=== PATIENT | female | born 1970 | race Caucasian/White ===

== ENCOUNTER 2017-02-18 11:01 | Day surgery (SDC) | payer BC ==
[~2017-02-18 11:01] MED LIST: ALPRAZolam 0.5 MG TAB PO ONE
--- NOTE | 2017-02-18 11:27 | US ---
ULTRASOUND GUIDED FNA THYROID BIOPSY: CLINICAL HISTORY: Reported history of outside right thyroid nodule FINDINGS: The procedure was explained to the patient. The risks, complications, benefits and alternatives were discussed and any questions were answered. Informed consent was obtained. Preliminary scanning was performed which demonstrated heterogeneous tissue with no distinct solid or cystic nodule. Therefore percutaneous biopsy could not be performed. IMPRESSION: 1. No distinct solid or cystic nodules seen for percutaneous biopsy..
== END 2017-02-18 11:30 | disposition home or self-care (01) ==
LOC: RADPROMAIN 11:01
PROVIDERS: ATTEND Family Medicine
DX: E04.1 Nontoxic single thyroid nodule (principal)
CPT/HCPCS: 76536

== ENCOUNTER → 2021-06-12 | Outpatient (CLI) | payer BC ==
--- NOTE | 2021-06-12 15:34 | CT ---
EXAMINATION TYPE: CT abdomen pelvis w con DATE OF EXAM: 06/12/2021 COMPARISON: None HISTORY: Unspecified intestinal obstruction CT DLP: 1275.9 mGycm Automated exposure control for dose reduction was used. TECHNIQUE: Helical acquisition of images from the lung bases through the pelvis have been completed. CONTRAST: Performed with Oral Contrast and with IV Contrast, patient injected with 100 mL of Isovue 300. FINDINGS: Minimal pericardial fluid is noted LUNG BASES: No significant abnormality is appreciated. AORTA: No significant abnormality is appreciated. LIVER/GB: Low dense focus associated with the left lobe liver measures 2.7 cm is likely represent cys t. Liver shows low attenuation possibly due to hepatic steatosis. Gallbladder is unremarkable. PANCREAS: No significant abnormality is seen. SPLEEN: No significant abnormality is seen. ADRENALS: No significant abnormality is seen. KIDNEYS: No significant abnormality is seen. REPRODUCTIVE ORGANS: No significant abnormality is seen BOWEL: No significant abnormality is seen. The appendix is unremarkable. Contrast has not coursed en tirely through the colon. Small umbilical hernia contains fat only. Postop changes are noted the evelin roesophageal junction. FREE AIR: No Free Air visible. ASCITES: None visible. PELVIC ADENOPATHY: None visualized. RETROPERITONEAL ADENOPATHY: No Retroperitoneal Adenopathy visible. URINARY BLADDER: No significant abnormality is seen. OSSEOUS STRUCTURES: Degenerative disc changes and facet arthropathy noted at the lumbosacral junctio n. IMPRESSION: CORRELATE FOR HEPATIC STEATOSIS, UMBILICAL HERNIA CONTAINS FAT.
== END | disposition home or self-care (01) ==
LOC: RADCTMAIN 11:44
PROVIDERS: ATTEND Family Medicine
DX: K76.0 Fatty (change of) liver, not elsewhere classified (principal); K42.9 Umbilical hernia without obstruction or gangrene
CPT/HCPCS: 74177; Q9967 ×2

== ENCOUNTER → 2023-04-01 | Outpatient (CLI) | payer BC ==
--- NOTE | 2023-04-01 15:42 | P.SLEEP ---
History of Present Illness H&P Date: 04/01/23 This is a 53-year-old female patient, who was referred to me for symptoms of chronic fatigue during the day and possibly an underlying poor sleep quality. The patient reports that she had issues with fatigue and lack of concentration for many years. This occurred at a younger age and the patient was treated with Concerta at a dose of 36 mg which improved her level of alertness and fatigue. Nevertheless, she continues to feel tired and getting a recent conversation with her primary care physician, it was decided to refer this patient to me to evaluate her sleep. Noted the patient has had some difficulties with sleep initiation and maintenance in the past and she has been maintained on trazodone at a dose of 100 mg 4 at least 12 years. She works at [employer]. She lives with her who also happens to work at [employer]. 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 She has to go to bed early and she is usually in bed at around 9:30 PM and she wakes up at around 4:30 AM in morning as the patient has to be at work early. She gets out of bed at 5 AM.. On weekends, she is able to sleep between 11 PM and 7:30 AM in the morning. On vacation days and whenever she is out with her friends, she feels better and she reports his sleep quality to be much improved. She denies having any snoring. Denies grinding of her teeth. Denies waking up choking or gasping for air. No restlessness and lower extremities. No substance abuse. No alcoholism. She drinks soda and she does not drink alcohol or coffee. She was obese and she has lost approximately 100 pounds while being on a medication -Ozempic and currently she is able to maintain a weight of 130 pounds. She is a nonsmoker. She does not fall asleep while driving her car or while at work. Her functional. Work is well preserved. Denies having any issues with anxiety or depression. No sleepwalking. No sleep talking. Coloma score is at 3. No cardiovascular disease. Review of Systems Constitutional: Reports fatigue, Reports weight loss Eyes: denies as per HPI, denies blurred vision, denies bulging eye, denies decreased vision, denies diplopia, denies discharge, denies dry eye, denies irritation, denies itching, denies pain, denies photophobia, denies loss of peripheral vision, denies loss of vision, denies tunnel vision/blind spots Ears: deny: decreased hearing, ear discharge, earache, tinnitus Ears, nose, mouth and throat: Reports as per HPI Breasts: absent: as per HPI, change in shape, gynecomastia, masses, nipple discharge, pain, skin changes, swelling Cardiovascular: Reports as per HPI Respiratory: Reports as per HPI Gastrointestinal: Reports as per HPI Genitourinary: Reports as per HPI Menstruation: Reports as per HPI Musculoskeletal: Reports as per HPI Musculoskeletal: absent: ankle pain, ankle stiffness, ankle swelling, as per HPI, elbow pain, elbow stiffness, elbow swelling, foot pain, foot stiffness, foot swelling, hand pain, hand stiffness, hand swelling, hip pain, hip stiffness, hip swelling, knee pain, knee stiffness, knee swelling, shoulder pain, shoulder stiffness, shoulder swelling, wrist pain, wrist stiffness, wrist swelling Integumentary: Reports as per HPI Neurological: Reports as per HPI Psychiatric: Reports as per HPI Endocrine: Reports fatigue Hematologic/Lymphatic: Reports as per HPI Allergic/Immunologic: Reports as per HPI Past Medical History Past Medical History: Thyroid Disorder Additional Past Medical History / Comment(s): Hashimotos, enlarged lymph node History of Any Multi-Drug Resistant Organisms: None Reported Past Surgical History: Section, Hernia Repair, Orthopedic Surgery Additional Past Surgical History / Comment(s): times 3, 3 hernia repairs, ORIF left wrist Past Anesthesia/Blood Transfusion Reactions: Postoperative Nausea & Vomiting (PONV) Past Psychological History: No Psychological Hx Reported Past Alcohol Use History: None Reported Past Drug Use History: None Reported - Past Family History Father Family Medical History: Myocardial Infarction ([place]) Medications and Allergies Home Medications and Allergies Comment(s): Concerta 36 mg 1 tablet a day in the morning, trazodone 100 mg at bedtime Home Medications Medication Instructions Recorded Confirmed Type traZODone HCL [Desyrel] 100 mg PO HS 08/10/15 11/14/17 History Allergies Allergy/AdvReac Type Severity Reaction Status Date / Time No Known Allergies Allergy Verified 11/18/17 08:06 Physical Exam BP is 117/78, pulse is 80, respirations 12 and the temperature is 97.9. Weight is 130, BMI is 25, Coloma score is at 3, pulse ox is 98% on room air oxygen The patient appeared well nourished and normally developed. Vital signs as documented. Head exam is unremarkable. No scleral icterus or corneal arcus noted. Neck is without jugular venous distension, thyromegaly, or carotid bruits. Carotid upstrokes are brisk bilaterally. Lungs are clear to auscultation and percussion. Cardiac exam reveals the PMI to be normally sized and situated. Rhythm is regular. First and second heart sounds normal. No murmurs, rubs or gallops. Abdominal exam reveals normal bowel sounds, no masses, no organomegaly and no aortic enlargement. Extremities are nonedematous and both femoral and pedal pulses are normal.Examination of the skin revealed no evidence of significant rashes, suspicious appearing nevi or other concerning lesions.Neurologically, the patient is awake and alert and the patient does not have any focal neurological deficit. Cranial nerves are essentially intact. Assessment and Plan Plan: Chronic fatigue and difficulties with attention and some degree of sleepiness. Coloma score is at 3 and the patient is admitted on Concerta 36 mg for many years. Underlying obstructive sleep apnea or any other sleep disorders felt to be less likely. She may have a component of stress/anxiety induced insomnia and the patient has been maintained on trazodone 100 mg at bedtime and she is able to generate a good 5/6 hours of sleep per night. History of obesity, post weight loss with Ozempic History of Tammy's thyroiditis Plan Possible this patient on relaxation techniques Discussed with her the importance of maintaining good sleep schedule and good sleep hygiene measures Agree on continuing Concerta at this point in time in combination with trazodone We'll do a screening polysomnogram to evaluate his sleep quality, architecture deficiency and rule out any other possibilities that could potentially cause chronic fatigue and sleepiness during the day. Further, decided to follow based on results of the sleep study. Sleep Note - Sleep Note Sleep Note: Temperature: Pulse Rate: Respiratory Rate: Blood Pressure: SpO2: Height: Weight: BMI: Neck Circumference:
== END ==
LOC: SLEEP 14:36
PROVIDERS: ATTEND Internal Medicine Critical Care Medicine
DX: G47.33 Obstructive sleep apnea (adult) (pediatric) (principal); F41.9 Anxiety disorder, unspecified; R53.83 Other fatigue; E66.9 Obesity, unspecified; Z86.39 Personal history of other endocrine, nutritional and metabolic disease
CPT/HCPCS: 99211

== ENCOUNTER → 2023-05-22 | Outpatient (CLI) | payer BC ==
[2023-05-23 03:00] LABS: T4, Free (Free Thyroxine) 1.18 ng/dL (0.80-1.80)
[2023-05-23 05:45] LABS: Clam IgE <0.10 kU/L; Codfish IgE <0.10 kU/L; Egg White IgE <0.10 kU/L; Peanut IgE <0.10 kU/L; Scallop IgE <0.10 kU/L; Shrimp IgE <0.10 kU/L; Soybean IgE <0.10 kU/L; Walnut IgE (Food) <0.10 kU/L
[2023-05-23 14:33] LABS: Candida albicans IgE Class CLASS 0
== END | disposition home or self-care (01) ==
LOC: LABWHC1 14:29
PROVIDERS: ATTEND Family Medicine
DX: E55.9 Vitamin D deficiency, unspecified (principal); E07.9 Disorder of thyroid, unspecified; R10.84 Generalized abdominal pain; R53.83 Other fatigue
CPT/HCPCS: 36415; 82306; 82784; 82785; 84439; 84443; 84480; 86003

== ENCOUNTER → 2024-11-05 | Outpatient (CLI) | payer BC ==
--- NOTE | 2024-11-08 08:44 | MM ---
Reason for Exam: Screening (asymptomatic). Last mammogram was performed 8 year(s) and 7 month(s) ago. Patient History: Menarche at age 11. First Full-Term at age 22. Postmenopausal. Patient has history of breast feeding. Benign Cyst Aspiration on the right side. Risk Values: Tamiko 5 year model risk: 1.1%. NCI Lifetime model risk: 7.2%. Prior Study Comparison: 03/04/2012 Screening Mammogram, [facility]. 11/02/2014 Bilateral Diagnostic Mammogram, [facility]. 04/24/2016 Bilateral Diagnostic Mammogram, [facility]. Tissue Density: There are scattered areas of fibroglandular density. Findings: Analyzed By CAD. Right breast: There is no suspicious group of microcalcifications or new suspicious mass. Left breast: There is no suspicious group of microcalcifications or new suspicious mass. Overall Assessment: Negative, BI-RAD 1 Management: Screening Mammogram of both breasts in [address] [facility] will attempt to contact patient to return for supplemental views and ultrasound if indicated. Patient should continue monthly self-breast exams. A clinical breast exam by your physician is recommended on an annual basis. This exam should not preclude additional follow-up of suspicious palpable abnormalities. Note on Tamiko scores and lifetime risk: 1. A Tamiko score greater than 3% is considered moderate risk. If this is the case, consider specialist referral to assess eligibility for a risk reducing agent. 2. If overall lifetime risk for the development of breast cancer is 20% or higher, the patient may qualify for future screening with alternating mammogram and breast MRI. [facility], , 11/08/2024 8:37 AM. Electronically signed and approved by: Jas Mai DO
== END | disposition home or self-care (01) ==
LOC: RADMAMWWP 08:59
PROVIDERS: ATTEND Family Medicine
DX: Z12.31 Encounter for screening mammogram for malignant neoplasm of breast (principal); R92.323 Mammographic fibroglandular density, bilateral breasts; Z78.0 Asymptomatic menopausal state
CPT/HCPCS: 77063; 77067